=== PATIENT | female | born 1935 | race Caucasian/White ===

== ENCOUNTER 2016-11-25 18:36 | Emergency (ER) | payer OTHER, MEDICARE ==
[~2016-11-25] VITALS: Ht 165.1 cm; Wt 116.2 kg
[~2016-11-25 18:36] MED LIST: ACETAMINOPHEN1 EAC4; ALKA-SELTZER O1 EACH; ASPIRIN325 MG PO; ATORVASTATIN CA20 MG PO; AZO CRANBERRY1 EAC1 PO; BENADRYL ALLERG25 MG PO; BENADRYL25 MG PO; CALCARB 600 W-1 EACH PO; CALCIUM 600 +1 EA12 PO; CALTRATE 600 +1 EAC1 PO; CALTRATE 600 +1 EAC2 PO; CATAPRES0.1 MG PO; CATAPRES0.2 MG PO; CEFUROXIME500 MG; CLONAZEPAM0.5 MG; CLONAZEPAM0.5 MG PO; CLONIDINE HCL0.1 MG; CLONIDINE HCL0.2 MG PO; CRANBERRY 12,61 EACH PO; CRANBERRY PLUS1 EAC1 PO; DICYCLOMINE HCL20 MG PO; DOCUSATE SODIU1 EACH PO; DOXYCYCLINE HY100 MG; FEMARA2.5 MG PO; FERROUS SULFAT325 MG PO; FLAGYL500 MG PO; FLUOXETINE HCL20 MG PO; FLUOXETINE HCL40 MG PO; GABAPENTIN300 MG PO; GLIMEPIRIDE4 MG; GLUCOPHAGE500 MG PO; HYDROCHLOROTHIA25 MG; HYDROCHLOROTHIA25 MG PO; IBUPROFEN600 MG PO; IRON325 MG PO; JANUVIA25 M1 PO; KADIAN30 MG PO; KLONOPIN0.5 M1 PO; LIPITOR20 MG PO; LO-DOSE ASPIRIN81 M2 PO; LOPERAMIDE2 M1 PO; LOPRESSOR100 M1 PO; MAALOX SUSPENS148 ML PO; MACROBID100 MG PO; METFORMIN HCL500 M1 PO; METFORMIN HCL500 MG PO; METOPROLOL SUC100 MG PO; MICARDIS HCT1 TABLE1; MICARDIS HCT1 TABLE1 PO; MIRALAX17 GM PO; MIRALAX255 GM PO; MORPHINE SULFAT15 M1 PO; MOTRIN600 MG PO; MS CONTIN,ORAMO15 M1 PO; NIZORAL 2% CREA15 GM TP; NOVOLOG 10100 UNITS/ SC; NYSTATIN15 GM; OMEPRAZOLE20 MG PO; OXAYDO5 MG PO; OYSCO D TABLET1 EACH PO; PANTOPRAZOLE SO40 MG; PERCOCET 5/31 TABLET PO; PRILOSEC20 MG PO; PROTONIX40 MG; PROTONIX40 MG PO; PROZAC20 MG PO; ROPINIROLE HCL1 MG; ROXICODONE5 MG PO; SENNA-DOCUSATE1 EAC1 PO; TELMISARTAN80 MG PO; TIZANIDINE HCL4 MG PO; TOPROL XL100 MG; TOPROL XL100 MG PO; TRAMADOL HCL50 MG; TRAMADOL HCL50 MG PO; TUMS500 MG PO; ULTRAM50 MG PO; ZANTAC300 MG PO; ZOFRAN8 MG PO
[2016-11-25 20:35] LABS: HEMATOCRIT 42.3 % (36.0-46.0); MCH 31.9 PG (29.0-34.0); MCV 93.6 FL (83-99); PLATELET COUNT 161 K/uL (156-360); RBC DIS.WIDTH-SD 41.6 % (39-53); RED BLOOD COUNT 4.52 M/uL (3.80-5.20)
[2016-11-25 20:43] LABS: CHLORIDE 103 mEq/L (99-109); POTASSIUM 3.7 mEq/L (3.7-5.4); SODIUM 141 mEq/L (136-147)
[2016-11-25 20:45] LABS: GLUCOSE 190 mg/dL (70-99)
[2016-11-25 20:46] LABS: ANION GAP 13 MEQ/L (2-14)
[2016-11-25 20:47] LABS: TOTAL BILIRUBIN 0.5 mg/dL (0.0-1.0)
[2016-11-25 20:49] LABS: ALKALINE PHOSPHATASE 83 IU/L (3-129); GFR ESTIMATE (CALCULATED) 46 mL/min/
[2016-11-25 20:50] LABS: UREA NITROGEN (BUN) 26 mg/dL (9-23)
[2016-11-25 20:51] LABS: ADD MIUA? YES; BILIRUBIN NEGATIVE; BLOOD NEGATIVE; COLOR YELLOW ((YELLOW)); GLUCOSE (STRIP) NEGATIVE; KETONES NEGATIVE; LEUKOCYTES MODERATE; NITRITE NEGATIVE; PROTEIN (STRIP) NEGATIVE; SPECIFIC GRAVITY 1.019 (1.000-1.030); UROBILINOGEN 0.2 MG/DL (0.2-1.0)
[2016-11-25 20:57] LABS: BACTERIA NONE SEEN /HPF; EPITHELIAL CELLS RARE /HPF; MUCUS TRACE /LPF; RED BLOOD CELLS 0-5 /HPF (0-5); UCUL ADDED? YES; WHITE BLOOD CELLS 30-40 /HPF (0-5)
[2016-11-25] MEDS ORDERED: CIPRO500 MG PO (22:22)
[2016-11-25 22:50] VITALS: BP 145/81
== END 2016-11-25 23:06 | disposition home or self-care (01) ==
LOC: EME 18:36
PROVIDERS: Nurse Practitioner Family
DX: R10.2 Pelvic and perineal pain (principal); R11.2 Nausea with vomiting, unspecified; R19.7 Diarrhea, unspecified; R53.81 Other malaise; R68.83 Chills (without fever); R52 Pain, unspecified; I10 Essential (primary) hypertension; K57.30 Diverticulosis of large intestine without perforation or abscess without bleeding; E11.9 Type 2 diabetes mellitus without complications; Z79.84 Long term (current) use of oral hypoglycemic drugs; E78.5 Hyperlipidemia, unspecified; K21.9 Gastro-esophageal reflux disease without esophagitis; Z85.3 Personal history of malignant neoplasm of breast; Z95.0 Presence of cardiac pacemaker; Z96.651 Presence of right artificial knee joint; Z90.710 Acquired absence of both cervix and uterus; Z87.891 Personal history of nicotine dependence; Z88.0 Allergy status to penicillin
CPT/HCPCS: 74177; 80053; 81003; 85027; 87086 GA; 99281; 99285; J1200; J1885; J2405

== ENCOUNTER 2017-01-13 21:48 | Observation (INO) | payer OTHER, MEDICARE ==
[~2017-01-13] VITALS: Ht 165.1 cm; Wt 117.3 kg
[~2017-01-13 21:48] MED LIST changes: +CIPRO500 MG PO
[2017-01-13 22:51] LABS: HEMATOCRIT 39.9 % (36.0-46.0); MCH 32.2 PG (29.0-34.0); MCHC 33.6 G/DL (30.0-36.0); MCV 95.9 FL (83-99); MEAN PLAT.VOLUME 11.5 uM^3 (9.5-12.4); PLATELET COUNT 123 K/uL (156-360); RBC DIS.WIDTH-CV 11.9 % (11.8-14.6); RBC DIS.WIDTH-SD 41.6 % (39-53); RED BLOOD COUNT 4.16 M/uL (3.80-5.20); WHITE BLOOD COUNT 7.5 K/uL (4.1-10.2)
[2017-01-13 23:04] LABS: CHLORIDE 99 mEq/L (99-109); POTASSIUM 4.1 mEq/L (3.7-5.4); SODIUM 141 mEq/L (136-147)
[2017-01-13 23:07] LABS: GLUCOSE 137 mg/dL (70-99)
[2017-01-13 23:08] LABS: ANION GAP 10 MEQ/L (2-14)
[2017-01-13 23:09] LABS: TOTAL BILIRUBIN 0.5 mg/dL (0.0-1.0)
[2017-01-13 23:10] LABS: ALKALINE PHOSPHATASE 77 IU/L (3-129); GFR ESTIMATE (CALCULATED) 51 mL/min/
[2017-01-13 23:11] LABS: UREA NITROGEN (BUN) 27 mg/dL (9-23)
[2017-01-13 23:14] LABS: LIPASE 24 U/L (1.0-51.0)
[2017-01-13 23:16] LABS: TROP-I INTERPRETATION NEGATIVE; TROPONIN-I < 0.01 ng/mL (0.0-0.30)
[2017-01-14 01:29] LABS: ADD MIUA? NO; BILIRUBIN NEGATIVE; BLOOD NEGATIVE; COLOR YELLOW ((YELLOW)); GLUCOSE (STRIP) NEGATIVE; KETONES NEGATIVE; LEUKOCYTES NEGATIVE; NITRITE NEGATIVE; PROTEIN (STRIP) NEGATIVE; SPECIFIC GRAVITY 1.029 (1.000-1.030); UROBILINOGEN 0.2 MG/DL (0.2-1.0)
[2017-01-14 01:32] LABS: UCUL ADDED? NO
[2017-01-14] MEDS ORDERED: PRAMIPEXOLE DI0.5 MG PO (01:58)
[2017-01-14] MEDS ORDERED: JANUVIA100 MG PO (02:00)
[2017-01-14] MEDS ORDERED: TELMISARTAN-HC1 EAC2 PO (02:01)
[2017-01-14] MEDS ORDERED: FLONASE16 G1 BOTH NARES (02:02)
[2017-01-14] MEDS ORDERED: OLANZAPINE5 MG PO (02:03)
[2017-01-14] MEDS ORDERED: VENLAFAXINE HCL75 M3 PO (02:05)
[2017-01-14] MEDS ORDERED: DONEPEZIL HCL5 MG PO (02:05)
[2017-01-14] MEDS ORDERED: TYLENOL EXTRA500 MG PO (02:08)
[2017-01-14] MEDS ORDERED: CLARITIN,ALAVAR10 MG PO (02:12)
[2017-01-14] MEDS ORDERED: PROBIOTIC1 EAC7 PO (02:13)
[2017-01-14] MEDS ORDERED: SENOKOT,SENN1 TABLET PO (02:14)
[2017-01-14 04:47] VITALS: BP 134/82
[2017-01-14 06:18] LABS: TROP-I INTERPRETATION NEGATIVE; TROPONIN-I < 0.01 ng/mL (0.0-0.30)
[2017-01-14 07:52] VITALS: BP 129/62
[2017-01-14 08:25] LABS: POINT-OF-CARE METER ID UU13113831
[2017-01-14 11:56] VITALS: BP 131/68
[2017-01-14 12:58] LABS: POINT-OF-CARE METER ID UU13113831
[2017-01-14 14:48] LABS: TROP-I INTERPRETATION NEGATIVE; TROPONIN-I < 0.01 ng/mL (0.0-0.30)
[2017-01-14 16:00] VITALS: BP 141/87
[2017-01-14 17:31] LABS: POINT-OF-CARE METER ID UU13113831
[2017-01-14 21:00] VITALS: BP 150/82
[2017-01-15] VITALS: BP 157/80
[2017-01-15 00:23] LABS: TROP-I INTERPRETATION NEGATIVE; TROPONIN-I < 0.01 ng/mL (0.0-0.30)
[2017-01-15 06:40] VITALS: BP 158/68
[2017-01-15 08:30] VITALS: BP 142/67
[2017-01-15 12:24] VITALS: BP 120/70
[2017-01-15 12:59] LABS: POINT-OF-CARE METER ID UU14162513
[2017-01-15 18:08] LABS: Estimated Average Glucose 163 mg/dL (70-123); HEMOGLOBIN A1c (GLYCOHEMOGLOB) 7.3 % HGB (Below 5.7)
== END 2017-01-15 16:30 | disposition home or self-care (01) ==
LOC: EME 21:48 → EDOF 01-14 01:40 → 5WEST 01-14 01:40 → ENRESERV 01-14 02:11 → 5WEST 01-14 04:02
PROVIDERS: Emergency Medicine; Family Medicine
DX: R07.89 Other chest pain (principal); I44.2 Atrioventricular block, complete; Z95.0 Presence of cardiac pacemaker; K57.92 Diverticulitis of intestine, part unspecified, without perforation or abscess without bleeding; I10 Essential (primary) hypertension; E78.5 Hyperlipidemia, unspecified; E11.65 Type 2 diabetes mellitus with hyperglycemia; C50.911 Malignant neoplasm of unspecified site of right female breast; C79.51 Secondary malignant neoplasm of bone; C78.00 Secondary malignant neoplasm of unspecified lung; K21.9 Gastro-esophageal reflux disease without esophagitis; Z96.651 Presence of right artificial knee joint; E66.9 Obesity, unspecified; Z68.41 Body mass index [BMI] 40.0-44.9, adult; Z90.710 Acquired absence of both cervix and uterus; Z99.3 Dependence on wheelchair; Z91.19 Patient's noncompliance with other medical treatment and regimen; Z79.84 Long term (current) use of oral hypoglycemic drugs; Z79.891 Long term (current) use of opiate analgesic; Z79.82 Long term (current) use of aspirin; Z87.891 Personal history of nicotine dependence; F41.9 Anxiety disorder, unspecified; F32.9 Major depressive disorder, single episode, unspecified; F03.90 Unspecified dementia, unspecified severity, without behavioral disturbance, psychotic disturbance, mood disturbance, and anxiety; Z88.0 Allergy status to penicillin; Z88.7 Allergy status to serum and vaccine; Z88.8 Allergy status to other drugs, medicaments and biological substances
CPT/HCPCS: 71020; 71275; 74177; 80053; 81003; 82948; 83036; 83690; 84484; 85027; 85379; 93005; 99281; 99285; G0378; J1200; J1644; J1815; J2270; J2405; J7030

== ENCOUNTER 2017-11-23 18:32 | Observation (INO) | payer OTHER, MEDICARE ==
[~2017-11-23] VITALS: Ht 165.1 cm; Wt 115.3 kg
[~2017-11-23 18:32] MED LIST changes: +CLARITIN,ALAVAR10 MG PO; +DONEPEZIL HCL5 MG PO; +FLONASE16 G1 BOTH NARES; +JANUVIA100 MG PO; +OLANZAPINE5 MG PO; +PRAMIPEXOLE DI0.5 MG PO; +PROBIOTIC1 EAC7 PO; +SENOKOT,SENN1 TABLET PO; +TELMISARTAN-HC1 EAC2 PO; +TYLENOL EXTRA500 MG PO; +VENLAFAXINE HCL75 M3 PO
[2017-11-23 19:37] LABS: BASOPHIL (%) 0.7 % (0-1); EOSINOPHIL (%) 1.8 % (0-5); EOSINOPHIL COUNT 0.1 K/uL (0-0.3); HEMATOCRIT 34.5 % (36.0-46.0); HEMOGLOBIN 12.5 G/DL (11.9-15.5); IMMATURE GRANULOCYTE (%) 0.4 % (0.0-0.7); LYMPHOCYTE (%) 38.5 % (15-42); LYMPHOCYTE COUNT 1.1 K/uL (1.0-2.8); MCH 38.6 PG (29.0-34.0); MCHC 36.2 G/DL (30.0-36.0); MCV 106.5 FL (83-99); MONOCYTE COUNT 0.2 K/uL (0-0.8); NEUTROPHIL (%) 50.6 % (45-76); NEUTROPHIL COUNT 1.4 K/uL (1.8-6.4); PLATELET COUNT 95 K/uL (156-360); RBC DIS.WIDTH-CV 13.4 % (11.8-14.6); RBC DIS.WIDTH-SD 51.9 % (39-53); RED BLOOD COUNT 3.24 M/uL (3.80-5.20); WHITE BLOOD COUNT 2.8 K/uL (4.1-10.2)
[2017-11-23 19:44] LABS: INTER. NORMALIZED RATIO 1.1
[2017-11-23 19:46] LABS: PTT 27.2 SEC (25-37)
[2017-11-23 19:58] LABS: CHLORIDE 104 mEq/L (99-109); POTASSIUM 4.3 mEq/L (3.7-5.4); SODIUM 141 mEq/L (136-147)
[2017-11-23 20:00] LABS: GLUCOSE 152 mg/dL (70-99)
[2017-11-23 20:03] LABS: CREATININE 1.3 mg/dL (0.6-1.3); GFR ESTIMATE (CALCULATED) 42 mL/min/
[2017-11-23 20:04] LABS: UREA NITROGEN (BUN) 21 mg/dL (9-23)
[2017-11-23 21:00] LABS: APPEARANCE CLEAR ((CLEAR)); BILIRUBIN NEGATIVE; BLOOD NEGATIVE; COLOR STRAW ((YELLOW)); GLUCOSE (STRIP) NEGATIVE; KETONES NEGATIVE; LEUKOCYTES TRACE; NITRITE NEGATIVE; PROTEIN (STRIP) NEGATIVE; UROBILINOGEN 0.2 MG/DL (0.2-1.0)
[2017-11-23 21:06] LABS: BACTERIA NONE SEEN /HPF; EPITHELIAL CELLS RARE /HPF; MUCUS NONE SEEN /LPF; RED BLOOD CELLS 0-5 /HPF (0-5); UCUL ADDED? NO; WHITE BLOOD CELLS 0-5 /HPF (0-5)
[2017-11-23] MEDS ORDERED: EFFEXOR XR150 MG PO (21:13)
[2017-11-23] MEDS ORDERED: TOUJEO SOL300 UNIT/1 SC (21:13)
[2017-11-23] MEDS ORDERED: FASLODEX250 MG/5 M IM (21:14)
[2017-11-23] MEDS ORDERED: XGEVA120 MG/1.7 SC (21:14)
[2017-11-23] MEDS ORDERED: ZOVIRAX400 MG PO (21:15)
[2017-11-23] MEDS ORDERED: ZOFRAN8 MG PO (21:15)
[2017-11-23] MEDS ORDERED: COGENTIN1 MG PO (21:16)
[2017-11-23] MEDS ORDERED: MICROZIDE12.5 M1 PO (21:16)
[2017-11-23] MEDS ORDERED: IBRANCE125 MG PO (21:18)
[2017-11-23] MEDS ORDERED: GLUCOPHAGE500 MG PO (21:18)
[2017-11-23] MEDS ORDERED: ROXICODONE5 MG PO (21:19)
[2017-11-23] MEDS ORDERED: VITAMIN C500 M1 PO (21:20)
[2017-11-23] MEDS ORDERED: BENADRYL25 MG PO (21:20)
[2017-11-23 22:10] VITALS: BP 164/72
[2017-11-24 03:45] VITALS: BP 153/68
[2017-11-24 07:27] VITALS: BP 175/76
[2017-11-24 11:39] VITALS: BP 129/60
[2017-11-24 11:42] LABS: HDL CHOLESTEROL 39 MG/DL (Desirable>=50); LDL CHOLESTEROL 40 mg/dL (Desirable<100); NON-HDL CHOLESTEROL 81 mg/dL (Desirable<160); TOTAL CHOLESTEROL 120 mg/dL (Desirable<200); TRIGLYCERIDES 207 MG/DL (Normal: <150)
[2017-11-24 15:46] VITALS: BP 152/76
[2017-11-24 19:54] VITALS: BP 156/70
[2017-11-25 00:19] VITALS: BP 132/62
[2017-11-25 03:13] VITALS: BP 167/74
[2017-11-25 07:53] VITALS: BP 204/84
[2017-11-25 10:03] VITALS: BP 132/70
[2017-11-25 11:24] VITALS: BP 181/81
[2017-11-25 15:45] VITALS: BP 156/96
== END 2017-11-25 18:48 | disposition home or self-care (01) ==
LOC: EME 18:32 → EDOF 21:00 → 4SOUTH 21:00 → EDOF 21:00 → ENRESERV 21:11 → CANRESERV 21:11 → 4SOUTH 21:41
PROVIDERS: Emergency Medicine; Family Medicine
DX: G45.9 Transient cerebral ischemic attack, unspecified (principal); I10 Essential (primary) hypertension; E78.5 Hyperlipidemia, unspecified; E11.9 Type 2 diabetes mellitus without complications; K21.9 Gastro-esophageal reflux disease without esophagitis; F03.90 Unspecified dementia, unspecified severity, without behavioral disturbance, psychotic disturbance, mood disturbance, and anxiety; E66.01 Morbid (severe) obesity due to excess calories; Z68.41 Body mass index [BMI] 40.0-44.9, adult; Z95.0 Presence of cardiac pacemaker; Z85.3 Personal history of malignant neoplasm of breast; Z85.118 Personal history of other malignant neoplasm of bronchus and lung; I44.2 Atrioventricular block, complete; M19.90 Unspecified osteoarthritis, unspecified site; Z96.641 Presence of right artificial hip joint; Z90.710 Acquired absence of both cervix and uterus; Z88.0 Allergy status to penicillin; Z88.8 Allergy status to other drugs, medicaments and biological substances; Z88.5 Allergy status to narcotic agent; Z88.7 Allergy status to serum and vaccine
CPT/HCPCS: 70450; 80048; 80061; 81003; 82948; 83036; 83735; 85025; 85610; 85730; 93005; 95819; 99281; 99285; G0378; G8978 GP CH; G8979 GP CH; G8980 GP CH; G8987 GO CH; G8988 GO CH; G8989 GO CH; J1815